=== PATIENT | male | born 1975 | race Hispanic/Latino ===

== ENCOUNTER 2023-01-07 05:47 | Day surgery (SDC) | payer OTHER ==
[2023-01-02 12:06] LABS: BASOPHILS % (AUTO) 0.4 % (0.0-5.0); EOSINOPHILS % (AUTO) 0.8 % (0.0-8.0); HEMATOCRIT 48.6 % (42-54); LYMPHOCYTES % (AUTO) 30.5 % (21.0-51.0); MEAN CORPUSCULAR HEMOGLOBIN 26.9 pg (27.0-33.0); MEAN CORPUSCULAR HGB CONC 31.7 g/dL (32.0-36.0); MONOCYTES % (AUTO) 6.8 % (3.0-13.0); NEUTROPHILS % (AUTO) 61.2 % (40.0-77.0); PLATELET COUNT (AUTO) 275 K/uL (130-400); RED BLOOD CELL COUNT(AUTO) 5.72 MIL/uL (4.50-6.20); RED CELL DISTRIBUTION WIDTH 14.1 % (11.0-15.5); WHITE BLOOD COUNT (AUTO) 7.1 K/uL (4.8-10.8)
[2023-01-02 12:16] LABS: APPEARANCE,URINE CLEAR (CLEAR); BILIRUBIN,URINE NEGATIVE (NEGATIVE); COLOR,URINE LIGHT-YELLOW (YELLOW); GLUCOSE, URINE (UA) NEGATIVE (NEGATIVE); KETONES,URINE NEGATIVE (NEGATIVE); LEUKOCYTE ESTERASE ,URINE NEGATIVE Leu/uL (NEGATIVE); NITRATE,URINE NEGATIVE (NEGATIVE); OCCULT BLOOD,URINE NEGATIVE (NEGATIVE); PH,URINE 6.5 (5.0-8.0); PROTEIN,URINE NEGATIVE (NEGATIVE); UROBILINOGEN,URINE 0.2 mg/dL (0.2-1.0)
[2023-01-02 12:22] LABS: INR 0.93 (0.85-1.15); PROTHROMBIN TIME 9.8 SEC (9.6-11.6)
[2023-01-02 12:23] LABS: PARTIAL THROMBOPLASTIN TIME 30.5 SEC (26.3-35.5)
[2023-01-02 12:25] LABS: CREATININE 1.2 mg/dL (0.5-1.5); POTASSIUM 4.1 mmol/L (3.5-5.1)
[2023-01-02 12:38] LABS: B-TYPE NATRIURETIC PEPTIDE 31 pg/mL (0-100)
[2023-01-02 20:23] VITALS: BP 142/82
[2023-01-07] VITALS (8 sets, daily range): BP systolic 101–135; BP diastolic 53–74
[~2023-01-07] VITALS: Ht 177.8 cm; Wt 85.7 kg
[2023-01-07] MEDS ORDERED: 0.9%NACL 1000ML 1,000 ML IV ONE (06:12)
[2023-01-07] MEDS ORDERED: BUSP15TA3 PO (06:42)
[2023-01-07] MEDS ORDERED: SERT100T PO (06:42)
[2023-01-07] MEDS ORDERED: SILD20TA14 PO (06:42)
[2023-01-07] MEDS ORDERED: ATOR20TA65 PO (06:42)
[2023-01-07] MEDS ORDERED: TOPI-255 PO (06:42)
[2023-01-07] MEDS ORDERED: OMEP20CA12 PO (06:42)
[2023-01-07] MEDS ORDERED: LIDOCAINE HCL 1% MDV 50ML VIAL ONE (07:35)
[2023-01-07] MEDS ORDERED: VERAPAMIL HCL 2.5 MG/ML VIAL ONE (07:36)
[2023-01-07] MEDS ORDERED: NITROGLYCERIN 50MG VIAL ONE (07:36)
[2023-01-07] MEDS ORDERED: HEPARIN 10,000 UNIT/10ML (1,000 UNIT/ML) VIAL ONE (07:36)
[2023-01-07] MEDS ORDERED: FENTANYL CITRATE PF 50 MCG/1 ML 2ML VIAL ONE (07:36)
[2023-01-07] MEDS ORDERED: MIDAZOLAM HCL 1 MG/ML 2ML VIAL ONE ×2 (07:36→08:14)
[2023-01-07] MEDS ORDERED: IOHEXOL 350 MG/ML 100ML INFUS..BTL IV ONE (07:36)
[2023-01-07] MEDS ORDERED: DEXTROSE 50%-WATER 50 ML DISP.SYRIN IV PRN (09:00)
[2023-01-07] MEDS ORDERED: GLUCAGON 1MG KIT 1 MG ML IM PRN (09:00)
[2023-01-07] MEDS ORDERED: 0.9%NACL 1000ML 1,000 ML IV SCH (09:00)
== END 2023-01-07 13:00 | disposition home or self-care (01) ==
LOC: DAH 05:47
PROVIDERS: ATTEND Student in an Organized Health Care Education/Training Program
DX: I25.119 Atherosclerotic heart disease of native coronary artery with unspecified angina pectoris (principal); I10 Essential (primary) hypertension; E78.5 Hyperlipidemia, unspecified; F17.200 Nicotine dependence, unspecified, uncomplicated; Z79.01 Long term (current) use of anticoagulants; Z79.899 Other long term (current) drug therapy; Z82.49 Family history of ischemic heart disease and other diseases of the circulatory system; Z83.42 Family history of familial hypercholesterolemia; Z72.89 Other problems related to lifestyle; Z88.8 Allergy status to other drugs, medicaments and biological substances
CPT/HCPCS: 80048; 83880; 85025; 85610; 85730; 81003; 36415; 71045; 93005; 93458; C1769; C1894; J3010; J7030; J1644 ×2; J2250 ×2; J3490 ×3; Q9967; A4215; A4222; A6260; A4221; A4663; A4216; A6206; A4606; Q9965; A4223 ×3; 99156; 99157

== ENCOUNTER 2025-01-06 06:41 | Observation (INO) | payer OTHER ==
[2025-01-04 09:32] LABS: BASOPHILS # (AUTO) 0.04 K/uL (0.00-0.20); BASOPHILS % (AUTO) 0.6 % (0.0-5.0); EOSINOPHILS # (AUTO) 0.11 K/uL (0.00-0.70); EOSINOPHILS % (AUTO) 1.6 % (0.0-8.0); HEMATOCRIT 46.6 % (42-54); IMMATURE GRANULOCYTE ABSOLUTE 0.03 K/uL (0-1); LYMPHOCYTES # (AUTO) 3.1 K/uL (1.0-4.8); LYMPHOCYTES % (AUTO) 44.7 % (21.0-51.0); MEAN CORPUSCULAR HEMOGLOBIN 27.6 pg (27.0-33.0); MEAN CORPUSCULAR VOLUME 83.7 fL (79-99); MONOCYTES # (AUTO) 0.4 K/uL (0.1-1.0); MONOCYTES % (AUTO) 5.8 % (3.0-13.0); NEUTROPHILS # (AUTO) 3.2 K/uL (1.8-7.7); NEUTROPHILS % (AUTO) 46.9 % (40.0-77.0); PLATELET COUNT (AUTO) 305 K/uL (130-400); RED BLOOD CELL COUNT(AUTO) 5.57 MIL/uL (4.50-6.20); RED CELL DISTRIBUTION WIDTH 13.7 % (11.0-15.5); WHITE BLOOD COUNT (AUTO) 6.9 K/uL (4.8-10.8)
[2025-01-04 09:36] VITALS: BP 136/80; PULSE 60; RESP 18; TEMP 97.4
[2025-01-04 09:39] LABS: APPEARANCE,URINE CLEAR (CLEAR); BILIRUBIN,URINE NEGATIVE (NEGATIVE); COLOR,URINE LIGHT-YELLOW (YELLOW); GLUCOSE, URINE (UA) NEGATIVE (NEGATIVE); KETONES,URINE NEGATIVE (NEGATIVE); LEUKOCYTE ESTERASE ,URINE NEGATIVE Leu/uL (NEGATIVE); NITRATE,URINE NEGATIVE (NEGATIVE); OCCULT BLOOD,URINE NEGATIVE (NEGATIVE); PROTEIN,URINE NEGATIVE (NEGATIVE); UROBILINOGEN,URINE 0.2 mg/dL (0.2-1.0)
[2025-01-04 09:42] LABS: CREATININE 1.1 mg/dL (0.5-1.3); POTASSIUM 4.6 mmol/L (3.5-5.1)
[2025-01-04 09:44] LABS: ADD UA MICROSCOPIC NO
[2025-01-04 09:45] LABS: INR 0.95 (0.85-1.15); PROTHROMBIN TIME 10.1 SEC (9.6-11.6)
[2025-01-04 09:47] LABS: PARTIAL THROMBOPLASTIN TIME 29.9 SEC (26.3-35.5)
[~2025-01-06] VITALS: Ht 177.8 cm; Wt 94.5 kg
[2025-01-06] VITALS (30 sets, daily range): BP systolic 88–132; BP diastolic 50–77; PULSE 58–76; RESP 17–19; TEMP 97.3–97.8; O2SAT 96
[2025-01-06] MEDS ORDERED: ceFAZolin SODIUM 1 GM VIAL ONE (06:55)
[2025-01-06] MEDS ORDERED: TRANEXAMIC ACID 1000MG/10ML ONE (06:55)
[2025-01-06] MEDS ORDERED: VANCOMYCIN 1G/250ML KIT 500 ML IV ONE (06:56)
[2025-01-06] MEDS ORDERED: METHYLPREDNISOLONE ACETATE 80 MG/ML ONE (06:56)
[2025-01-06] MEDS ORDERED: BUPIvacaine/PF 0.25% 30ML VIAL IJ ONE (06:57)
[2025-01-06] MEDS ORDERED: ketOROlac 15MG/ML VIAL (15MG/ML) ONE (06:57)
[2025-01-06] MEDS ORDERED: ketOROlac 30MG VIAL (30MG/ML) ONE (07:07)
[2025-01-06] MEDS ORDERED: THROMBIN-JMI 20000 UNIT KIT TP ONE (07:08)
[2025-01-06] MEDS ORDERED: ceFAZolin SODIUM 2 GM VIAL ONE (07:12)
[2025-01-06] MEDS ORDERED: CETI10TA87 PO (07:19)
[2025-01-06] MEDS ORDERED: ATOR40TA69 PO (07:19)
[2025-01-06] MEDS ORDERED: VENL150C5 PO (07:19)
[2025-01-06] MEDS ORDERED: OMEP40CA21 PO (07:19)
[2025-01-06] MEDS: LACTATED RINGERS 1000ML 1,000 ML IV ONE (07:29)
[2025-01-06] MEDS ORDERED: proPOFol 1000 MG/100 ML 100 ML IV ONE ×2 (07:50→10:00)
[2025-01-06] MEDS ORDERED: LIDOCAINE PF 100MG/5ML (2%) SYRINGE 5ML ONE (07:55)
[2025-01-06] MEDS ORDERED: SUCCINYLCHOLINE CHLORIDE 20 MG/ML 10 ML VIAL ONE (07:56)
[2025-01-06] MEDS ORDERED: rocuRONium bROMide 10MG/1ML 5ML VL ONE (07:56)
[2025-01-06] MEDS ORDERED: MIDAZOLAM HCL 1 MG/ML 2ML VIAL ONE (07:56)
[2025-01-06] MEDS ORDERED: proPOFol 10 MG/ML 20ML VIAL IV ONE (07:56)
[2025-01-06] MEDS ORDERED: FENTanyl CITRate PF 50 MCG/1 ML 2ML VIAL ONE (07:57)
[2025-01-06] MEDS ORDERED: ketaMINE 50MG/ML SYRINGE 50 MG/ML DISP.SYRIN ONE (07:57)
[2025-01-06] MEDS ORDERED: dexmedeTOMIDine HCL 200 MCG/2 ML VIAL IV ONE (08:00)
[2025-01-06] MEDS ORDERED: phenylEPHRINE HCL 10 MG/ML 1ML VIAL IV ONE (08:26)
[2025-01-06] MEDS ORDERED: TRIAMCINOLONE ACETONIDE 40 MG/ML 1ML VIAL ONE (08:33)
[2025-01-06] MEDS ORDERED: LIDOCAINE 1%-EPI 1:100,000 20 ML VIAL ONE (08:47)
[2025-01-06] MEDS ORDERED: GLYCOPYRROLATE 0.2 MG/ML 5 ML VIAL ONE (09:00)
[2025-01-06] MEDS ORDERED: dexaMETHasone SOD PHOSPHATE 10MG/ML 1ML VIAL ONE (10:16)
[2025-01-06] MEDS ORDERED: ondanSETRON 4MG INJ ONE (10:16)
[2025-01-06] MEDS ORDERED: MEPERIDINE-PF 100 MG/ML SYG IM PRN (17:00)
--- NOTE | 2025-01-06 18:08 | HMCIMG ---
CERV SPINE 2-3VWS HISTORY: ACDF COMPARISON: None FINDINGS: Fluoroscopic images of cervical spine were obtained. Please see procedure report by referring physician. IMPRESSION: 1. Intraoperative films.
[2025-01-06] MEDS: acetaMINOPHEN WITH coDEINE 1 TAB TAB PO PRN (20:33)
[2025-01-07] VITALS: BP 122/58; PULSE 74; RESP 18; TEMP 97.9
[2025-01-07 00:16] VITALS: O2SAT 98
[2025-01-07 04:41] VITALS: BP 120/55; PULSE 65; RESP 17; TEMP 97.5
[2025-01-07] MEDS: acetaMINOPHEN WITH coDEINE 1 TAB TAB PO PRN (04:44)
[2025-01-07 08:00] VITALS: BP 141/79; PULSE 74; RESP 18; TEMP 98.3; O2SAT 94
[2025-01-07] MEDS: VENLAFAXINE HCL PO SCH (09:00)
[2025-01-07] MEDS: PANTOPrazole 40 MG TAB DR PO SCH (09:19)
[2025-01-07] MEDS: ceTIRIzine HCL 5 MG TABLET PO SCH (09:19)
--- NOTE | 2025-01-07 10:55 | NUR ---
discharge Patient left via wheelchair down to private car. Iv removed catheter in tact. Education received and no questions or concerns. No complains of pain. No further comments.
[2025-01-07] MEDS ORDERED: atorVAStatin 40 MG TABLET PO SCH (21:00)
--- NOTE | 2025-01-09 22:07 | DS ---
HISTORY: The patient is a 49-year-old male patient status post anterior cervical diskectomy and fusion at C3-C4. Postoperative day #1, has been afebrile and hemodynamically stable, tolerating diet. There is no dysphagia. He has been ____ spontaneously and ambulating freely. Pain has been under control with p.o. medication. The wound looks dry and clean. There is no evidence of a hematoma. There is no hoarseness. We will discharge him home. He will follow up with us in 2 weeks. Advised to keep the wound dry and clean to avoid any strenuous activity. TID: [id number] RECEIPT: [id number]
--- NOTE | 2025-01-13 08:19 | OP ---
DATE OF PROCEDURE: 01/06/2025 INDICATIONS: The patient is a 49-year-old male patient with prior episode of cervical surgery anteriorly that now presents with adjacent level disease above the level for which he was advised, agreed and consented freely. PREOPERATIVE DIAGNOSIS: Cervical spondylosis with cord compression and intractable neck pain at C3-C4. POSTOPERATIVE DIAGNOSIS: Cervical spondylosis with cord compression and intractable neck pain at C3-C4. PROCEDURE: Anterior cervical diskectomy, arthrodesis and fusion with PEEK cage allograft bone and a cervical plate. SURGEON: Mario Miller M.D. ANESTHESIA: General. ESTIMATED BLOOD LOSS: Less than 100 mL. INTRAOPERATIVE COMPLICATIONS: None. PROCEDURE DETAILS: The patient tolerated the procedure well. EMG and SSEP remained baseline. Sponge count, needle count, cottonoid count were reported complete at the end of the procedure. The patient was brought to the operating room. Adequate general endotracheal anesthesia was achieved. IV antibiotics were given. Thereafter, the patient was positioned supine, DVT garments and the needle for the EMG, SSEP were secured, the patient was supine with a shoulder roll, neck slightly extended as the patient tolerated without any neurological sequela and then the neck was extensively prepped and draped in the usual sterile fashion. One of the cervical creases were used to start the incision with blade, bipolar coagulation. The platysma was cut along its longitudinal fibers and then sharp and blunt dissection until the prevertebral fascia was encountered, dissected with a Kittner. Once this was done, the indented levels of C3-C4 was identified. Longus colli were dissected bilaterally. The trimline retractor was ducked underneath the longus colli and then this was incised with blade 11, upward curette, pituitary rongeur and then the drill to continue the diskectomy and arthrodesis. The posterior longitudinal ligament was taken down decompressing the thecal sac and removing the osteophyte with different sizes of pituitary rongeurs 1.5, occasional #2. The foramens were decompressed as well where hemostasis was achieved with bipolar coagulation ____. Copious irrigation was done and thereafter the wound was copiously irrigated. A PEEK cage #9 fits knot. This was packed with the allograft bone and positioned once adequate position was achieved. The cervical plate was brought into the field and on the AP and lateral fluoroscopy, this was secured with the screws to the upper body of C3-C4 and secured to the plate locking mechanism. Copious irrigation was done with bacteriostatic solution and thereafter lidocaine with Marcaine infiltrated in the subcutaneous tissue. The wound was sprinkled with antibiotic and powder and it was closed. Then, the platysma with Vicryl 3 subcutaneous as well as subcuticular stitch and Dermabond for the skin. The patient tolerated the procedure well. There were no complications. EMG, SSEP remained baseline. Sponge count, needle count and cottonoid count were reported were reported complete at the end of the procedure. Family members were addressed. TID: [id number] RECEIPT: [id number]
== END 2025-01-07 10:55 | disposition home or self-care (01) ==
LOC: DAH 06:41 → DAHIP 06:42 → 4BH 06:44
PROVIDERS: ADMIT Neurological Surgery; ATTEND Neurological Surgery
DX: M50.11 Cervical disc disorder with radiculopathy, high cervical region (principal); M47.12 Other spondylosis with myelopathy, cervical region; G95.29 Other cord compression; M48.02 Spinal stenosis, cervical region; M25.78 Osteophyte, vertebrae; F41.9 Anxiety disorder, unspecified; E78.00 Pure hypercholesterolemia, unspecified; F32.A Depression, unspecified; Z98.1 Arthrodesis status; Z79.899 Other long term (current) drug therapy; Z86.2 Personal history of diseases of the blood and blood-forming organs and certain disorders involving the immune mechanism
CPT/HCPCS: 80048; 85025; 85610; 85730; 86850; 86900; 86901; 81003; 36415; 22551; 22853; 20930; 22845; 72040; G0378 ×23; A4663; J7120 ×2; A4649 ×4; J3370 ×2; J3010; J3490 ×9; J1100; J0330; J2003; J3260; J2250; J2704 ×3; J2405; J1885 ×2; J2371; J1040; J0690; A6010; C1889; A4930; A4215; A4223; A4222; A4221; J3301; C1713; J0665